=== PATIENT | male | born 1960 ===

== ENCOUNTER 2017-02-25 01:26 | Inpatient (IN) ==
[2017-02-25] MEDS ORDERED: BISACODYL 5 MG TABLET PO PRN (01:46)
[2017-02-25] MEDS ORDERED: ACETAMINOPHEN 325 MG TABLET PO PRN (01:46)
[2017-02-25] MEDS ORDERED: HYDROmorphone 2 MG/1 ML VIAL IV PRN ×3 (01:46→11:26)
[2017-02-25] MEDS ORDERED: ONDANSETRON 4 MG/2 ML VIAL IV PRN ×3 (01:46→11:26)
[2017-02-25] MEDS ORDERED: DEXTROSE 50% 25 GM/50 ML VIAL IV PRN (01:49)
[2017-02-25] MEDS ORDERED: GLUCAGON 1 MG VIAL IM PRN (01:49)
--- NOTE | 2017-02-25 01:54 | Emergency Department Note ---
Chiquita Salamanca Mantricia, am scribing for, and in the presence of, Jesse Polanco MD 01:52. Collin Salamanca Robert M, MD, personally performed the services described in this documentation, ascribed by Randee Porras in my presence, and it is both accurate and complete 153 . Arrival - Arrival Chief Complaint: Extremity Problem Stated Complaint: gangrene and cellulitis to left foot. ED Nursing Triage Note: transferred from [facility] with left 3rd toe gangrene. 3rd toe black, redness to surrounding tissues. pt states that toe began hurting/redness approx 2 months ago. denies any fever. pulses present. Mode of Arrival: Stretcher Limitations: No Limitations Source: Patient - History of Present Illness HPI Narrative: Pt is a 57 y/o male arraiving to ED by EMS as a transfer from [facility] for further evaluation of LLE problem that onset a month ago. Pt has visible gangrene to left foot. He states that a month ago, his toes on the left foot began to bleed and he did not think much of it because he was sble to stop the bleeding and control it. Pt has DM. He denies smoking and drinking. He reports no other complaints to ED. Onset (ago): month(s) Consistency: constant Allergies/Adverse Reactions: Allergies Allergy/AdvReac Type Severity Reaction Status Date / Time No Known Allergies Allergy Verified 06/10/16 10:09 Home Medications: Home Medications Medication Instructions Recorded Confirmed Type Carvedilol [Coreg] 3.125 mg PO BID 06/10/16 06/11/16 History Chlorthalidone [Hygroton] 25 mg PO DAILY 06/10/16 06/11/16 History Ferrous Sulfate [Ferrous Sulfate 325 mg PO DAILY 06/10/16 06/11/16 History Cap] Glyburide/Metformin HCl 2 each PO BID 06/10/16 06/11/16 History [Glyburide-Metformin 5-500 mg] Lisinopril [Prinivil] 5 mg PO DAILY 06/10/16 06/11/16 History Simvastatin [Zocor] 20 mg PO DAILY 06/10/16 06/11/16 History Review of System - Review of System 12 point system: reviewed and no additional remarkable complaints except as stated - Review of System Constitutional: Absent: chills, diaphoresis, fever Respiratory: Absent: cough Gastrointestinal: Absent: abdominal pain, nausea, vomiting, diarrhea Musculoskeletal: Present: other (gangrene to left foot). Absent: arm pain, back pain, leg pain, neck pain Medical,Surgical,& Family Hx - Medical History Cardio: History of: Hypertension Psychological: No history of: Anxiety Disorders Endocrine: History of: Diabetes Mellitus (NIDDM), Dyslipidemia Renal: No history of: Dialysis Genitourinary: No history of: Bladder Problem, Kidney Stones, Prostate Problems Hematology: History of: Anemia No history of: Blood Transfusion Reaction Other: No history of: Anesthesia Reactions, Cancer - Surgical History Cardiac Surgeries: Patient Denies: Cardiac Catheterization HEENT Surgeries: Patient denies: Tonsilectomy & Adenoidectomy Abdominal Surgeries: Surgical HX of: EGD Patient denies: Appendectomy, Cholecystectomy, Colonoscopy Orthopedic Surgeries: Patient denies;: Orthopedic Surgery - Social History Smoking Status: Never smoker Frequency of Alcohol Use: None Type of Drug Use: None Exam Vital Signs: Vital Signs Temperature 97.9 F 02/25/17 01:26 Pulse Rate 103 H 02/25/17 01:26 Respiratory Rate 18 02/25/17 01:26 Blood Pressure 115/74 02/25/17 01:26 O2 Sat by Pulse Oximetry 100 02/25/17 01:26 - General General appearance: alert, in no apparent distress - Head Head exam: Present: atraumatic, normocephalic, normal inspection - Eye Eye exam: Present: normal appearance, PERRL, EOMI - ENT ENT exam: Present: normal exam, normal oropharynx, mucous membranes moist, TM's normal bilaterally, normal external ear exam - Neck Neck exam: Present: normal inspection, full ROM, trachea midline. Absent: tenderness - Chest Chest inspection: Present: normal inspection, symmetric chest wall rise. Absent : tenderness - Respiratory Respiratory exam: Present: normal lung sounds bilaterally - Cardiovascular Cardiovascular exam: Present: regular rate, normal rhythm, normal heart sounds - Abdominal Exam Abdominal exam: Present: soft, normal bowel sounds. Absent: distention, tenderness, guarding, rebound - Extremities Exam Extremities exam: Present: full ROM, normal capillary refill, other (dry gangrene to left foot (2nd to 4th digits); toes are dry, chrunken, and stiff; able to wiggle 2nd and 4th digit (limited ROM to 3rd digit); discoloration to the dorsal aspect of 2nd to 4th digits of left foot). Absent: tenderness - Back Exam Back exam: Present: normal inspection, full ROM. Absent: tenderness - Neurological Exam Neurological exam: Present: alert, oriented X3, CN II-XII intact, normal gait, reflexes normal - Psychiatric Psychiatric exam: Present: normal affect, normal mood - Skin Skin exam: Present: warm, dry, intact, normal color Course - Consultations Consultation #1: The patient will be admitted to Dr. Dover. Time: 01:54 Disposition Clinical Impression: Diabetic infection of left foot, Gangrene left third toe, IDDM (insulin dependent diabetes mellitus) Case discussed with: patient, patient's family Disposition: Still a Patient Condition: Stable Time of Disposition: 01:54
[2017-02-25 02:53] LABS: Apearance,Urine Slightly Hazy (Clear); Bacteria,Urine Occasional /HPF (Few); Bilirubin,Urine Negative (Negative); Blood, Urine Small mg/dL (Negative); Glucose,Urine (UA) 50 mg/dL (Negative); Hyaline Casts,Urine 14 /LPF (0-3); Ketones,Urine Negative (Negative); Mucus,Urine Occasional /LPF (Occasional); Nitrite,Urine Negative (Negative); Protein,Urine Negative; Squamous Epithelial Cell,Urine Occasional /HPF (0-10); Urine Color Yellow (Yellow); Urine Specific Gravity 1.018 (1.001-1.035); WBC,Urine 1 /HPF (0-6)
[2017-02-25] MEDS: SODIUM CHLORIDE 0.45% 1,000 ML IV SCH (03:09)
[2017-02-25] MEDS: PIPERACILLIN/TAZOBACTAM 3,375 MG in SODIUM CHLORIDE 0.9% 100 ML IV SCH ×3 (04:29→20:11)
[2017-02-25] MEDS ORDERED: INSULIN LISPRO 100 UNIT/ML SUBCUT SCH (06:00)
--- NOTE | 2017-02-25 06:26 | EKG Report ---
Stationary ECG Study [facility] Test Date: 02/25/2017 6:02:20 AM Pat Name: ASIM CHUNG Department: Room: 333 Gender: M Grooming Assistant: PIA : [id number] Requested by: Cielo Prado Order Number: [id number] Reading MD: ENDY SUAREZ Intervals [place] Rate: 99 P: 67 DE: 193 QRS: 71 QRSD: 89 T: 65 QT: 319 QTc: 375 Interpretive Statements SINUS RHYTHM Electronically Signed On 02-25-17 06:50:14 CDT by ENDY SUAREZ [email or web address]
[2017-02-25 07:27] LABS: Basophils % 0.2 % (0.0-0.8); Eosinophils % 0.1 % (0.00-10.9); Hematocrit 25.5 VOL% (42.0-52.0); Hemoglobin 8.7 GM/DL (14.0-18.0); Immature Granulocytes % 0.7 %; Immature Granulocytes Absolute 0.11 #; Lymphocytes # 1.1 10*3/uL (1.4-4.0); Lymphocytes % 7.2 % (21.2-54.2); Mean Corpuscular HGB Conc 34.1 GM/DL (32-36); Mean Corpuscular Hemoglobin 30 PG (27-34); Mean Corpuscular Volume 88.2 FL (87-102); Mean Platelet Volume 8.9 FL (9.6-12.0); Monocytes # 0.9 10*3/uL (0.11-0.8); Monocytes % 5.9 % (1.7-12.7); Neutrophils # 13.3 10*3/uL (1.4-7.4); Neutrophils % 85.9 % (38.7-73.9); Platelet Count 302 T/CUMM (130-400); Red Blood Count 2.89 MC/CUMM (3.8-5.5); Red Cell Distribution Width 12.8 % (9.3-17.3); White Blood Count 15.5 T/CUMM (4-12)
[2017-02-25 07:59] LABS: Albumin 2.6 G/DL (3.4-5.0); Bilirubin,Total 0.8 MG/DL (0.2-1.0); Calcium 8.1 MG/DL (8.5-10.1); Potassium 4.5 MMOL/L (3.5-5.1); Total Protein 6.2 G/DL (6.4-8.3)
--- NOTE | 2017-02-25 09:02 | General Surg History&Physical ---
Assessment and Plan - Time spent with patient Time spent with patient: Greater than 30 minutes (1) Gangrene of toe of left foot Status: Acute Assessment and plan: 02/25/2017. Ischemic gangrene left third toe with abscess and skin loss of the dorsal left foot. This is likely related to diabetic foot infection, with unknown degree of underlying peripheral vascular disease. His glucoses and WBC are elevated at this point as well, and he needs surgical excision of the toe and drainage of the infection. We will plan to take him to surgery this morning. He understands that we are to amputate the left third toe, and it is questionable whether we can save this left second and fourth toes. He also understands that we will be left with a large defect dorsal scan on the left foot, and this will require an extensive period of time of healing before we can hope to graft or close the area but in effort to salvage the forefoot this will be our initial plan. He understands and is in agreement with conservative treatment at this point in favor of this plan over transmetatarsal amputation. Current Visit: Yes (2) Diabetic infection of left foot Status: Acute Current Visit: Yes History of Present Illness Chief complaint: Ischemic left third toe with infection left foot History of present illness: Mr. Alvarez is a 57 year old male Home Medications Medication Instructions Recorded Confirmed Type Carvedilol [Coreg] 3.125 mg PO BID 06/10/16 06/11/16 History Chlorthalidone [Hygroton] 25 mg PO DAILY 06/10/16 06/11/16 History Ferrous Sulfate [Ferrous Sulfate 325 mg PO DAILY 06/10/16 06/11/16 History Cap] Glyburide/Metformin HCl 2 each PO BID 06/10/16 06/11/16 History [Glyburide-Metformin 5-500 mg] Lisinopril [Prinivil] 5 mg PO DAILY 06/10/16 06/11/16 History Simvastatin [Zocor] 20 mg PO DAILY 06/10/16 06/11/16 History Allergies Allergy/AdvReac Type Severity Reaction Status Date / Time No Known Allergies Allergy Verified 06/10/16 10:09 Medical,Surgical,& Family Hx - Medical History Cardio: History of: Hypertension Psychological: No history of: Anxiety Disorders Endocrine: History of: Diabetes Mellitus (NIDDM), Dyslipidemia Renal: No history of: Dialysis Genitourinary: No history of: Bladder Problem, Kidney Stones, Prostate Problems Hematology: History of: Anemia No history of: Blood Transfusion Reaction Other: No history of: Anesthesia Reactions, Cancer - Surgical History Cardiac Surgeries: Patient Denies: Cardiac Catheterization HEENT Surgeries: Patient denies: Tonsilectomy & Adenoidectomy Abdominal Surgeries: Surgical HX of: EGD Patient denies: Appendectomy, Cholecystectomy, Colonoscopy Orthopedic Surgeries: Patient denies;: Orthopedic Surgery - Family History Family History: Reports;: Family Diabetes (two brothers) - Social History Smoking Status: Never smoker (Patient admits to using smokeless tobacco frequently) Frequency of Alcohol Use: None Type of Drug Use: None Exam - Constitutional Vitals: Period Temp Pulse Resp BP Sys/Chand Pulse Ox Last 24 Hr 97.9 F-99.4 F 92-103 16-20 103-126/66-78 99-100 General appearance: normal weight, no acute distress - Head Head exam: Present: normal inspection - Eye Eye exam: Present: EOMI Pupils: Present: EILEEN - ENT Mouth exam: Present: normal voice, dry mucosa - Respiratory Respiratory exam: Absent: rales, wheezes - Cardiovascular Cardiovascular exam: Present: RRR - GI/Abdominal GI/Abdominal exam: Present: hypoactive bowel sounds, soft. Absent: distended, tenderness - Extremities Exam Extremities exam: Present: other (Left lower extremity is warm to touch. Distal ischemic changes left foot to include blistering and ischemic skin midportion of the dorsal foot. This is well demarcated, with ischemic and dry gangrene of the left third toe. There are ischemic skin changes of the left second and fourth toes. It is hyperemic and erythema over the left foot to approximately the level of the tarsal bones. There is no fluctuance past the midfoot area. On the plantar surface he is tender and there is mild erythema but no fluctuance. I cannot palpate pulses with certainty or consistency, but intermittently do feel that there are pulses present and the DP site on the left at 1+. On the right there are palpable 1-2+ pulses in the DP and PT sites. He has markedly visible varicosities present bilaterally without swelling, erythema, or venous stasis changes.). Absent: edema Quality Measures - VTE Contraindication to Pharmacological VTE Prophylaxis: High Risk of Bleeding Results - Labs CBC & BMP: 02/25/17 07:16 02/25/17 07:16 Lab Results: I have reviewed the past 24 hour labs - Diagnostic Findings Procedure: CT: report reviewed by me (Outside CT from [place] was reviewed. There is no evidence of osteo-, however there is air and soft tissue noted with ischemic gangrene of the left third toe.)
[2017-02-25] MEDS: PANTOPRAZOLE 40 MG TABLET PO SCH (09:36)
[2017-02-25] MEDS ORDERED: ROPIVACAINE 0.5% 30 ML VIAL ONE (09:59)
[2017-02-25] MEDS ORDERED: LIDOCAINE 2% 5 ML VIAL ONE (10:11)
[2017-02-25] MEDS ORDERED: PROPOFOL 200 MG/20 ML VIAL IV ONE (10:11)
--- NOTE | 2017-02-25 11:13 | Operative Note ---
Date of procedure: 02/25/17 Pre-op diagnosis: Ischemic left third toe with ischemic changes dorsum of the left foot Post-op diagnosis: other (Ischemic changes of the second third and fourth toes with extensive ischemic changes on the dorsum of the left foot) Procedure: Operative note: Preoperative diagnosis: Ischemic changes of the left third toe with ischemic changes on the dorsum of the foot Postoperative diagnosis: Ischemic changes of the second third and fourth toes with ischemic changes dorsum of the left foot Procedure: Amputation of the second third and fourth toe transmetatarsal with extensive debridement of skin subcutaneous tissue tendon and muscle Surgeon Dr. Dover Forensic Manager Cielo Prado, [employer] ACNP Anesthesia was regional block with local and managed anesthetic care Brief history: 57-year-old diabetic male who arrived emergency room because of increasing odor and discoloration of the third toe of the left foot changes in the dorsum of his foot. He was admitted put on IV antibiotics and would like to bring the surgery at this time to try to get this thing debrided and cleaned up. Because extensiveness of the ischemic changes on the dorsum of the foot were concerned that we may have to also take the second and fourth toes along with the third. Procedure: With patient in the supine position prepped and draped in sterile fashion timeout and antibiotics completed we approach this area the wound itself the large necrotic area on the dorsum of the foot at the base of the second third and fourth toes with a mummified third toe at this time. At this point I made an incision around the base of the third toe care unit dorsum onto the necrotic tissue at which time I was able to disarticulate that toe completely off. We had a large amount of necrotic tissue still that would begin to debride to try to clear the necrotic tissue debriding some tendon muscle and the subcutaneous tissue and skin. As we continue to work it was clear that the third toe was not the only toe of concern but the fourth toe looked completely gone at this time. He was bluish and discolored and this process was extending up onto the toe itself. At that point went across the base of the fourth toe and disarticulated at the joint excising the tendon subtenons tissue. We taken tissue for culture and sensitivity during this time. With that removed and then begin to debride some of that necrotic tissue off the dorsum of the foot that extended over to the fifth toe but we tried to get where it looked normal but we still had some clotted veins present in that area. We debrided good bit at subcutaneous tissue to get beyond the thrombosed vessels at this point. At this time as we begin to look at the second toe we opened up some loose skin and find that it was ischemic to so at this point I went ahead and went around the base of the second toe and disarticulated it with the knife and then debrided the tendon and subcutaneous tissue from the skin edge and removing all thrombosed vessels that we can see at this point. That looks clear at this point with some bleeding on the lateral edge at this time. At this point I finished debriding the dorsum of the foot that we took an oscillating saw and we did took the saw and removed the metatarsal heads of the second third and fourth metatarsals. Once we had completed that we debrided additional tenderness and muscle and subcutaneous tissue in the base to get a clean little area especially between the metatarsals. Before we finished we found an ulcer in the base of the fifth toe we debrided that with the knife just to get to good clean base and removed some loose skin. This toe may be involved we might lose it to. When we finished we washed irrigated with saline solution. We have a total wound now that is 10.4 x 7.1 x 2.4 cm in size. This is a Eastman's grade 4 wound. Estimated blood loss 15 cc Sponge count correct 2 Drains none Complications none Condition stable satisfactory Anesthesia: regional, local (0.25% Marcaine plain mixed [id number] 1% Xylocaine plain) Surgeon / Physician: Jesse Dover Forensic Manager: Cielo Prado Estimated blood loss: other (10 cc) Specimens: other (Tissue for cultures bone for cultures and tissue for pathology ) Condition: stable Disposition: floor Results - Labs CBC & BMP: 02/25/17 07:16 02/25/17 07:16 Discharge Plan - Discharge Medications No Action Simvastatin [Zocor] 20 mg PO BEDTIME Lisinopril [Prinivil] 5 mg PO DAILY Glyburide/Metformin HCl [Glyburide-Metformin 5-500 mg] 2 each PO BID Ferrous Sulfate [Ferrous Sulfate Cap] 325 mg PO DAILY Chlorthalidone [Hygroton] 25 mg PO DAILY Carvedilol [Coreg] 3.125 mg PO DAILY - Follow Up or Referral - Forms/Instructions
[2017-02-25] MEDS ORDERED: SKIN HEALING OINT (AQUAPHOR) 50 GM TUBE TOP PRN (11:26)
[2017-02-25] MEDS ORDERED: fentaNYL 100 MCG/2 ML VIAL ONE (11:26)
[2017-02-25] MEDS ORDERED: MIDAZOLAM 2 MG/2 ML VIAL ONE (11:26)
[2017-02-25] MEDS ORDERED: CHLORHEXIDINE 4% SOLN 118 ML BOTTLE TOP ONE (11:26)
[2017-02-25] MEDS ORDERED: LACTATED RINGERS 1,000 ML IV SCH (11:30)
[2017-02-25] MEDS: KETOROLAC 15 MG/1 ML VIAL IV SCH ×3 (12:57→23:06)
[2017-02-25] MEDS: INSULIN REGULAR 100 UNIT/ML SUBCUT SCH ×3 (13:01→20:12)
[2017-02-25] MEDS: SIMVASTATIN 20 MG TABLET PO SCH (20:14)
[2017-02-25] MEDS: ENOXAPARIN 40 MG/0.4 ML SYRINGE SUBCUT SCH (20:14)
[2017-02-26] MEDS: PIPERACILLIN/TAZOBACTAM 3,375 MG in SODIUM CHLORIDE 0.9% 100 ML IV SCH ×3 (03:16→21:35)
[2017-02-26] MEDS: SODIUM CHLORIDE 0.45% 1,000 ML IV SCH ×6 (03:17→21:35)
[2017-02-26] MEDS: KETOROLAC 15 MG/1 ML VIAL IV SCH ×4 (05:29→22:51)
[2017-02-26 06:14] LABS: Basophils % 0.2 % (0.0-0.8); Eosinophils # 0.2 10*3/uL (0.0-0.87); Eosinophils % 1.3 % (0.00-10.9); Hemoglobin 8.2 GM/DL (14.0-18.0); Immature Granulocytes % 0.5 %; Immature Granulocytes Absolute 0.06 #; Lymphocytes # 1.4 10*3/uL (1.4-4.0); Lymphocytes % 11.1 % (21.2-54.2); Mean Corpuscular HGB Conc 32.8 GM/DL (32-36); Mean Corpuscular Hemoglobin 30 PG (27-34); Mean Corpuscular Volume 90.6 FL (87-102); Mean Platelet Volume 9.5 FL (9.6-12.0); Monocytes # 0.7 10*3/uL (0.11-0.8); Monocytes % 5.3 % (1.7-12.7); Neutrophils # 10.4 10*3/uL (1.4-7.4); Neutrophils % 81.6 % (38.7-73.9); Platelet Count 277 T/CUMM (130-400); Red Blood Count 2.76 MC/CUMM (3.8-5.5); Red Cell Distribution Width 13.1 % (9.3-17.3); White Blood Count 12.7 T/CUMM (4-12)
[2017-02-26 06:45] LABS: Albumin 2.4 G/DL (3.4-5.0); Bilirubin,Total 0.6 MG/DL (0.2-1.0); Calcium 7.9 MG/DL (8.5-10.1); Osmolality,Calculated 288.1 MOS/KG (273-304); Potassium 4.5 MMOL/L (3.5-5.1); Total Protein 5.5 G/DL (6.4-8.3)
[2017-02-26] MEDS: INSULIN REGULAR 100 UNIT/ML SUBCUT SCH ×4 (09:12→21:30)
[2017-02-26] MEDS: FERROUS SULFATE 325 MG TABLET PO SCH (09:12)
[2017-02-26] MEDS: CARVEDILOL 3.125 MG TABLET PO SCH (09:12)
[2017-02-26] MEDS: LISINOPRIL 5 MG TABLET PO SCH (09:12)
[2017-02-26] MEDS: CHLORTHALIDONE 25 MG TABLET PO SCH (09:13)
[2017-02-26] MEDS: PANTOPRAZOLE 40 MG TABLET PO SCH (09:13)
--- NOTE | 2017-02-26 09:46 | General Surgery Progress Note ---
Assessment and Plan (1) Gangrene of toe of left foot Status: Acute Assessment and plan: 02/25/2017. Ischemic gangrene left third toe with abscess and skin loss of the dorsal left foot. This is likely related to diabetic foot infection, with unknown degree of underlying peripheral vascular disease. His glucoses and WBC are elevated at this point as well, and he needs surgical excision of the toe and drainage of the infection. We will plan to take him to surgery this morning. He understands that we are to amputate the left third toe, and it is questionable whether we can save this left second and fourth toes. He also understands that we will be left with a large defect dorsal scan on the left foot, and this will require an extensive period of time of healing before we can hope to graft or close the area but in effort to salvage the forefoot this will be our initial plan. He understands and is in agreement with conservative treatment at this point in favor of this plan over transmetatarsal amputation. 02/26/2017. Patient is stable postop I&D excisional debridement of left foot and amputation of second through fourth toes. Will initiate wound care today, keeping the areas moist while we await final cultures. Metabolically looks good and will follow his labs. When final cultures are available we will work on a disposition for wound care while we increased granulation in hopes of ultimately grafting this wound. Will be optimistically cautious as we await the status of the fifth toe, but he understands that we may ultimately lose the fifth toe as well Current Visit: Yes (2) Diabetic infection of left foot Status: Acute Current Visit: Yes Subjective Patient reports: Present: pain is less, tolerating a regular diet Exam - Constitutional Vitals: Period Temp Pulse Resp BP Sys/Chand Pulse Ox Last 24 Hr 97.8 F-99.0 F 51-77 14-20 90-130/41-75 98-100 General appearance: no acute distress - Respiratory Respiratory exam: Present: clear to auscultation bilaterally - Cardiovascular Cardiovascular exam: Present: RRR - Extremities Exam Extremities exam: Present: other (Patient is status post amputation of the left second through fourth toes with debridement of dorsal left foot. Erythema is clearing. There is no advancing ischemic change. I see no gross purulence. There is mild oozing from the proximal margin of the foot. He is appropriately tender. The only questionable area of vascularization is the fifth toe, which is a bit dusky.) Results - Labs CBC & BMP: 02/26/17 05:04 02/26/17 05:04 Lab Results: I have reviewed the past 24 hour labs (Postop labs are stable.) Quality Measures - VTE Contraindication to Pharmacological VTE Prophylaxis: High Risk of Bleeding
[2017-02-26] MEDS: SODIUM HYPOCHLORITE 0.25% IRRIG 473 ML BOTTLE TOP SCH (16:41)
[2017-02-26] MEDS: ENOXAPARIN 40 MG/0.4 ML SYRINGE SUBCUT SCH (21:32)
[2017-02-26] MEDS: SIMVASTATIN 20 MG TABLET PO SCH (21:32)
--- NOTE | 2017-02-27 03:31 | Pathology Report from [facility] ---
[facility] [place] : [id number] PATIENT NAME : Pepe Alvarez ORDERING DR : MICHELLE CEJA MD CLINICAL HX: DM - Gangrene left foot POST-OP DX: Same SPECIMEN INFO: 3rd, 4th, 5th toes left foot GROSS DESCRIPTION: The specimen is received in formalin labeled with the patients name PEPE ALVAREZ and 3RD, 4TH & 5TH TOES and consists of three focally gangrenous toes along with fragments of bone and soft tissue measuring 9.0 x 5.5 cm in aggregate. A delivery representative section submitted in one cassette. DIAGNOSIS FOR PEPE ALVAREZ: LEFT 3RD, 4TH AND 5TH TOES, AMPUTATIONS: Gangrene. COLLECTED DATE: 02/25/2017 [facility] [place] DATE: 02/26/2017 ELECTRONICALLY SIGNED BY: William Todd M.D. 02/26/2017 - 9:11:26 [facility]ITAL[facility]oh[facility]
[2017-02-27] MEDS: SODIUM CHLORIDE 0.45% 1,000 ML IV SCH ×3 (05:09→17:51)
[2017-02-27] MEDS: PIPERACILLIN/TAZOBACTAM 3,375 MG in SODIUM CHLORIDE 0.9% 100 ML IV SCH ×3 (05:10→20:19)
[2017-02-27] MEDS: KETOROLAC 15 MG/1 ML VIAL IV SCH ×3 (05:10→16:40)
[2017-02-27] MEDS: CARVEDILOL 3.125 MG TABLET PO SCH (08:24)
[2017-02-27] MEDS: LISINOPRIL 5 MG TABLET PO SCH (08:24)
[2017-02-27] MEDS: INSULIN REGULAR 100 UNIT/ML SUBCUT SCH ×4 (08:25→20:20)
[2017-02-27] MEDS: FERROUS SULFATE 325 MG TABLET PO SCH (08:25)
[2017-02-27] MEDS: PANTOPRAZOLE 40 MG TABLET PO SCH (08:25)
[2017-02-27] MEDS: CHLORTHALIDONE 25 MG TABLET PO SCH (08:25)
[2017-02-27] MEDS: SODIUM HYPOCHLORITE 0.25% IRRIG 473 ML BOTTLE TOP SCH (09:44)
--- NOTE | 2017-02-27 09:50 | General Surgery Progress Note ---
Assessment and Plan - Time spent with patient Time spent with patient: Less than 30 minutes (1) Gangrene of toe of left foot Status: Acute Assessment and plan: 02/25/2017. Ischemic gangrene left third toe with abscess and skin loss of the dorsal left foot. This is likely related to diabetic foot infection, with unknown degree of underlying peripheral vascular disease. His glucoses and WBC are elevated at this point as well, and he needs surgical excision of the toe and drainage of the infection. We will plan to take him to surgery this morning. He understands that we are to amputate the left third toe, and it is questionable whether we can save this left second and fourth toes. He also understands that we will be left with a large defect dorsal scan on the left foot, and this will require an extensive period of time of healing before we can hope to graft or close the area but in effort to salvage the forefoot this will be our initial plan. He understands and is in agreement with conservative treatment at this point in favor of this plan over transmetatarsal amputation. 02/26/2017. Patient is stable postop I&D excisional debridement of left foot and amputation of second through fourth toes. Will initiate wound care today, keeping the areas moist while we await final cultures. Metabolically looks good and will follow his labs. When final cultures are available we will work on a disposition for wound care while we increased granulation in hopes of ultimately grafting this wound. Will be optimistically cautious as we await the status of the fifth toe, but he understands that we may ultimately lose the fifth toe as well 02/27/2017. Progressing well post amputation of left second third and fourth toes for ischemic gangrene. His hematocrit is stable at 25; we will watch this a little bit longer before transfusing. His arterial Doppler waveform does seem to indicate an abnormal inflow pattern. His creatinine is 1.2 so will plan to get a CTA today to assess his arterial status. Final cultures are still pending; he is growing gram-negative rods on preliminary cultures, and is currently receiving Zosyn IV. We will continue this and his local care until final cultures are available. Current Visit: Yes (2) Diabetic infection of left foot Status: Acute Current Visit: Yes Subjective Patient reports: Present: feels better, pain is less, tolerating a regular diet Exam - Constitutional Vitals: Period Temp Pulse Resp BP Sys/Chand Pulse Ox Last 24 Hr 97.6 F-98.4 F 61-78 16-20 122-146/64-74 98-100 General appearance: no acute distress - Respiratory Respiratory exam: Present: clear to auscultation bilaterally - Cardiovascular Cardiovascular exam: Present: RRR - GI/Abdominal GI/Abdominal exam: Present: soft. Absent: tenderness - Extremities Exam Extremities exam: Present: other (Left lower extremity postop wound is clean without bleeding or progressive ischemic changes. There is no erythema. Left fifth toe vascularity is still questionable.) Results - Labs CBC & BMP: 02/26/17 05:04 02/26/17 05:04 Lab Results: I have reviewed the past 24 hour labs (Hematocrit is stable at 25. His white count is now normal at 12.7. Arterial Doppler waveform is noted; see Dr. Dover formal interpretation. I discussed this with him, note that the waveform pattern is markedly abnormal, even though the ABIs are not unusually low.) Quality Measures - VTE Contraindication to Pharmacological VTE Prophylaxis: High Risk of Bleeding
--- NOTE | 2017-02-27 11:49 | CT Report ---
CT angio abdomen/femoral Indication: Abnormal arterial Doppler study. Claudication. Comparison: None. Technique: Following administration of intravenous contrast, multiple contiguous axial images were obtained from the mid to lower chest through the feet. Additionally, 3-D Volumetric reconstructions of the aorta and bilateral lower extremity arterial structures were performed. Coronal and sagittal MPR series were initially submitted. The CT examination was performed using one or more of the following dose reduction techniques: Automatic exposure control, adjustment of the mA and kV according to patient size, use of acute or iterative reconstruction techniques. Findings: Vascular findings: Lower thoracic aorta demonstrates no significant abnormality. The suprarenal abdominal aorta, celiac axis, superior mesenteric artery, and bilateral renal arteries demonstrate no significant abnormality. The infrarenal abdominal aorta demonstrates no significant abnormality. Notice made that the inferior mesenteric artery demonstrates circumferential intimal calcification with suggested mild stenosis of the vessel lumen involving a short segment of the vessel after the vessel origin. The bilateral common iliac arteries demonstrate no disease. The bilateral internal iliac arteries demonstrate diffuse mild to moderate intimal calcification after the first division. The bilateral external iliac arteries and common femoral arteries demonstrate no significant disease. The right deep femoral artery demonstrates diffuse intimal calcification circumferentially present and some of the intramuscular branches makes the lumen difficult to visualize. No distinct occlusion is present. The right superficial femoral artery demonstrates circumferential intimal calcification throughout the vessel without evidence of significant stenosis. The right popliteal artery demonstrates diffuse circumferential intimal calcification resulting in no significant stenosis. Below the level of the right knee, the right tibioperoneal trunk and right anterior tibial artery origin demonstrate diffuse circumferential calcification. Calcification additionally is noted within the posterior tibial artery. There appears to be three-vessel runoff to the right ankle although the lumens of the anterior and posterior tibial arteries at the level of the ankle somewhat difficult to visualize secondary to the amount of calcification present. The left deep femoral artery demonstrates circumferential intimal calcification without distinct evidence of severe stenosis. The left superficial femoral artery demonstrates circumferential intimal calcification resulting in no significant stenosis. Left popliteal artery has no significant stenosis and additionally demonstrates circumferential intimal calcification. Below the level of the left knee, the tibioperoneal trunk, anterior tibial artery, posterior tibial artery, and peroneal artery demonstrates intimal calcification with no definite significant stenosis. Three-vessel runoff to the left ankle is suggested however the peroneal artery within the lower calf, the posterior tibial artery within the lower calf and ankle, and the anterior tibial artery at the level of the ankle is somewhat difficult to evaluate secondary to small lumen size and amount of intimal calcification present. Nonvascular findings: Otherwise, the imaged structures of the lower chest, liver, spleen, pancreas, adrenal glands, kidneys, stomach, bowel, and intrapelvic contents as well as bony structures soft tissues and musculature the body wall demonstrate no evidence of significant pathology. Musculature the lower extremities bilaterally symmetric with no atrophy suggested. Osseous structures demonstrate no acute findings. Impression: 1. There is diffuse circumferential intimal calcification involving each of the superficial femoral arteries, popliteal arteries, and origins of the anterior, posterior tibial arteries as well as peroneal arteries and tibioperoneal trunks. There is no evidence of significant stenosis involving these vessels through the mid calf. Below the mid calf, the amount of calcification makes the lumen of the vessels difficult to visualize. There is suggested three-vessel runoff to the right ankle. Probable 3 vessel runoff to the left ankle is present. Conventional angiogram would be required for further characterization of the lumens below the level of the mid calf bilaterally. 02/27/2017 11:38 AM PROCEDURE INTERPRETED AT [facility] DEPARTMENT OF RADIOLOGY Final Report Signed by: Dr. Miguel Polanco
[2017-02-27] MEDS: SIMVASTATIN 20 MG TABLET PO SCH (20:20)
[2017-02-27] MEDS: ENOXAPARIN 40 MG/0.4 ML SYRINGE SUBCUT SCH (20:20)
[2017-02-28] MEDS: KETOROLAC 15 MG/1 ML VIAL IV SCH ×2 (00:07→04:55)
[2017-02-28] MEDS: SODIUM CHLORIDE 0.45% 1,000 ML IV SCH ×2 (01:29→11:41)
[2017-02-28] MEDS: PIPERACILLIN/TAZOBACTAM 3,375 MG in SODIUM CHLORIDE 0.9% 100 ML IV SCH ×3 (04:55→21:10)
[2017-02-28] MEDS: INSULIN REGULAR 100 UNIT/ML SUBCUT SCH ×4 (08:37→21:05)
[2017-02-28] MEDS: CARVEDILOL 3.125 MG TABLET PO SCH (08:58)
[2017-02-28] MEDS: FERROUS SULFATE 325 MG TABLET PO SCH (08:58)
[2017-02-28] MEDS: PANTOPRAZOLE 40 MG TABLET PO SCH (08:58)
[2017-02-28] MEDS: LISINOPRIL 5 MG TABLET PO SCH (08:58)
[2017-02-28] MEDS: CHLORTHALIDONE 25 MG TABLET PO SCH (08:58)
[2017-02-28] MEDS: SODIUM HYPOCHLORITE 0.25% IRRIG 473 ML BOTTLE TOP SCH (08:59)
--- NOTE | 2017-02-28 10:08 | General Surgery Progress Note ---
Assessment and Plan - Time spent with patient Time spent with patient: Less than 30 minutes (1) Gangrene of toe of left foot Status: Acute Assessment and plan: 02/25/2017. Ischemic gangrene left third toe with abscess and skin loss of the dorsal left foot. This is likely related to diabetic foot infection, with unknown degree of underlying peripheral vascular disease. His glucoses and WBC are elevated at this point as well, and he needs surgical excision of the toe and drainage of the infection. We will plan to take him to surgery this morning. He understands that we are to amputate the left third toe, and it is questionable whether we can save this left second and fourth toes. He also understands that we will be left with a large defect dorsal scan on the left foot, and this will require an extensive period of time of healing before we can hope to graft or close the area but in effort to salvage the forefoot this will be our initial plan. He understands and is in agreement with conservative treatment at this point in favor of this plan over transmetatarsal amputation. 02/26/2017. Patient is stable postop I&D excisional debridement of left foot and amputation of second through fourth toes. Will initiate wound care today, keeping the areas moist while we await final cultures. Metabolically looks good and will follow his labs. When final cultures are available we will work on a disposition for wound care while we increased granulation in hopes of ultimately grafting this wound. Will be optimistically cautious as we await the status of the fifth toe, but he understands that we may ultimately lose the fifth toe as well 02/27/2017. Progressing well post amputation of left second third and fourth toes for ischemic gangrene. His hematocrit is stable at 25; we will watch this a little bit longer before transfusing. His arterial Doppler waveform does seem to indicate an abnormal inflow pattern. His creatinine is 1.2 so will plan to get a CTA today to assess his arterial status. Final cultures are still pending; he is growing gram-negative rods on preliminary cultures, and is currently receiving Zosyn IV. We will continue this and his local care until final cultures are available. 02/28/2017. Progressive ischemic changes of the left foot with gangrenous tissue now noted for left fifth toe. This does need to be debrided and likely will lose the fifth toe. I discussed this with the patient, as well as the possibility that he may need further studies to determine this circulation status lower extremities. I believe we would benefit from going ahead and obtaining an opinion from Dr. Carcamo, and consulted him for Thursday. We may also be able to take him to surgery on Thursday and go ahead and debride this area but will have Dr. Dover look in and reevaluate on Thursday. Will repeat labs on Thursday and hold him n.p.o. in case we can do the surgery on Thursday. Current Visit: Yes (2) Diabetic infection of left foot Status: Acute Current Visit: Yes Subjective Patient reports: Present: no new complaints, tolerating a regular diet Exam - Constitutional Vitals: Period Temp Pulse Resp BP Sys/Chand Pulse Ox Last 24 Hr 97.3 F-98.4 F 63-80 16-20 117-150/53-80 95-100 General appearance: no acute distress - Respiratory Respiratory exam: Present: clear to auscultation bilaterally - Cardiovascular Cardiovascular exam: Present: RRR - GI/Abdominal GI/Abdominal exam: Present: soft - Extremities Exam Extremities exam: Present: other (Left lower extremity without edema. The left dorsal foot wound is moist and pale. There is no active bleeding noted. There is no advancing erythema. The lateral edge of the wound does show some duskiness, and approximately 1 cm skin loss at the proximal margin. Unfortunately the left fifth toe does appear ischemic, and I do not see any salvageable tissue of the toe itself. The lateral skin of the foot however does perfuse is sensate. The left great toe is well perfused and has no ischemic signs. There is no edema bilaterally and no calf tenderness.) Results - Labs CBC & BMP: 02/26/17 05:04 02/26/17 05:04 Lab Results: I have reviewed the past 24 hour labs - Diagnostic Findings Procedure: CT Abdomen and Pelvis: image reviewed by me, report reviewed by me ( CTA is noted to have circumferential calcifications of the femoral arteries bilaterally with no specific point of stenosis. There does appear to be three- vessel runoff to the Calves but I am not clear as to what point this is reconstituted at the feet, however, and there is some question as to the need for a formal arteriogram.) Quality Measures - VTE Contraindication to Pharmacological VTE Prophylaxis: High Risk of Bleeding
--- NOTE | 2017-02-28 10:47 | Event Note ---
I have seen and examined this patient and agree with the note by ATA Reed done today. The patient is status post amputation of left second third and fourth toes transmetatarsal on 02/25/2017. The fifth toe has some necrotic changes but this is being watched currently. We will continue current management and wound care.
[2017-02-28] MEDS: ENOXAPARIN 40 MG/0.4 ML SYRINGE SUBCUT SCH (21:05)
[2017-02-28] MEDS: SIMVASTATIN 20 MG TABLET PO SCH (21:05)
[2017-03-01] MEDS: PIPERACILLIN/TAZOBACTAM 3,375 MG in SODIUM CHLORIDE 0.9% 100 ML IV SCH ×3 (04:34→20:24)
[2017-03-01 05:43] LABS: Basophils % 0.2 % (0.0-0.8); Eosinophils # 0.1 10*3/uL (0.0-0.87); Eosinophils % 1.3 % (0.00-10.9); Hemoglobin 8.4 GM/DL (14.0-18.0); Immature Granulocytes % 0.7 %; Immature Granulocytes Absolute 0.08 #; Lymphocytes # 1.8 10*3/uL (1.4-4.0); Lymphocytes % 16.4 % (21.2-54.2); Mean Corpuscular HGB Conc 33.6 GM/DL (32-36); Mean Corpuscular Hemoglobin 30 PG (27-34); Mean Corpuscular Volume 89.3 FL (87-102); Mean Platelet Volume 9.1 FL (9.6-12.0); Monocytes # 0.7 10*3/uL (0.11-0.8); Monocytes % 6.1 % (1.7-12.7); Neutrophils # 8.3 10*3/uL (1.4-7.4); Neutrophils % 75.3 % (38.7-73.9); Platelet Count 326 T/CUMM (130-400); Red Cell Distribution Width 12.8 % (9.3-17.3)
[2017-03-01 06:16] LABS: Albumin 2.3 G/DL (3.4-5.0); Bilirubin,Total 0.4 MG/DL (0.2-1.0); Calcium 7.8 MG/DL (8.5-10.1); Total Protein 5.6 G/DL (6.4-8.3)
[2017-03-01 06:17] LABS: Osmolality,Calculated 281.3 MOS/KG (273-304); Potassium 4.3 MMOL/L (3.5-5.1)
[2017-03-01] MEDS: LISINOPRIL 5 MG TABLET PO SCH (08:38)
[2017-03-01] MEDS: FERROUS SULFATE 325 MG TABLET PO SCH (08:38)
[2017-03-01] MEDS: PANTOPRAZOLE 40 MG TABLET PO SCH (08:38)
[2017-03-01] MEDS: INSULIN REGULAR 100 UNIT/ML SUBCUT SCH ×4 (08:38→20:25)
[2017-03-01] MEDS: CARVEDILOL 3.125 MG TABLET PO SCH (08:38)
[2017-03-01] MEDS: CHLORTHALIDONE 25 MG TABLET PO SCH (08:38)
[2017-03-01] MEDS: SODIUM HYPOCHLORITE 0.25% IRRIG 473 ML BOTTLE TOP SCH (08:40)
--- NOTE | 2017-03-01 08:53 | Event Note ---
General Surgery Progress Note Chief complaint This patient is a 57-year-old man who was admitted and treated with amputation of left second third and fourth toes for gangrene on 02/25/[address] Dover Interval history The patient had no events overnight. He has no complaints today. Physical exam The patient is afebrile with normal vital signs The left foot wound shows necrosis of the left fifth toe There is some soupy tissue present at the amputation sites. Labs None Imaging None Assessment and plan The patient likely needs more surgery but he also is undergoing vascular workup. We will continue local wound care and antibiotics
[2017-03-01] MEDS: SIMVASTATIN 20 MG TABLET PO SCH (20:24)
[2017-03-01] MEDS: ENOXAPARIN 40 MG/0.4 ML SYRINGE SUBCUT SCH (20:25)
[2017-03-02] MEDS: PIPERACILLIN/TAZOBACTAM 3,375 MG in SODIUM CHLORIDE 0.9% 100 ML IV SCH ×3 (04:41→23:33)
[2017-03-02] MEDS: CARVEDILOL 3.125 MG TABLET PO SCH (08:36)
[2017-03-02] MEDS: PANTOPRAZOLE 40 MG TABLET PO SCH (08:36)
[2017-03-02] MEDS: INSULIN REGULAR 100 UNIT/ML SUBCUT SCH ×4 (08:36→21:31)
[2017-03-02] MEDS: LISINOPRIL 5 MG TABLET PO SCH (08:36)
[2017-03-02] MEDS ORDERED: ceFAZolin 2,000 MG in PREMIX 1 EACH IV ONE (08:49)
[2017-03-02] MEDS: FERROUS SULFATE 325 MG TABLET PO SCH (08:49)
--- NOTE | 2017-03-02 08:54 | General Surgery Progress Note ---
Assessment and Plan - Time spent with patient Time spent with patient: Less than 30 minutes (1) Diabetic infection of left foot Status: Acute Assessment and plan: 03/02/2017. The wound of the dorsum of the left foot does not look good with a good bit of sloughing material still present at this time. The fifth toe has become ischemic as we expected it would as we have had failing of the skin flaps progression on the lateral aspect of the foot at this time. The left great toe continues to be okay with a little bit of skin change right at the edge of the wound near it. At this point we need further debridement to clean up this wound to see if we can get beyond this point. We will plan to taken to surgery today for debridement. CTA has failed to really show us any good possibility for any type of reconstructive process that would improve circulation at this time. HBO may help the healing process although this is going be a tough one to get a base down that we could eventually get skin over. He will most certainly require skin graft at some point. Current Visit: Yes Subjective Patient reports: Present: no new complaints, afebrile Exam - Constitutional Vitals: Period Temp Pulse Resp BP Sys/Chand Pulse Ox Last 24 Hr 98.1 F-98.8 F 62-84 15-18 110-140/62-73 97-100 General appearance: mild distress - Head Head exam: Present: normal inspection - ENT ENT exam: Present: normal exam - Neck Neck exam: Present: normal inspection - Respiratory Respiratory exam: Present: clear to auscultation bilaterally - Cardiovascular Cardiovascular exam: Present: RRR - GI/Abdominal GI/Abdominal exam: Present: normal bowel sounds, soft - Extremities Exam Extremities exam: Present: other (Open wound of the left foot with failed skin flaps of the lateral aspect of the wound and progression of ischemic changes of the left fifth toe. Sloughy material in the center of the wound with some mild skin loss on the medial part of the skin edge at this time.) - Back Exam Back exam: Present: normal inspection - Neurological Exam Neurological exam: Present: alert, oriented X3, CN II-XII intact - Skin Skin exam: Present: normal color, warm, dry Results - Labs CBC & BMP: 03/01/17 05:13 03/01/17 05:13 Lab Results: I have reviewed the past 24 hour labs Quality Measures - VTE Contraindication to Pharmacological VTE Prophylaxis: High Risk of Bleeding
[2017-03-02] MEDS: CHLORTHALIDONE 25 MG TABLET PO SCH (09:11)
[2017-03-02] MEDS ORDERED: ROPIVACAINE 0.5% 30 ML VIAL ONE (10:54)
--- NOTE | 2017-03-02 11:07 | Vascular Surgery Consult Note ---
History of Present Illness Chief complaint: diabetic gangrene left foot History of present illness: Mr. Alvarez is a 57 year old male Mr. Alvarez is admitted with diabetic gangrene involving his left foot he is undergone amputation second third and fourth toes and debridement on the dorsum of the foot and will require further debridement and amputation of the fifth toe today. Lower arterial Dopplers show some generalized decreased pulse volume waveforms but very high pressures which is consistent with atherosclerotic and calcified vessels. CT angiogram that I have reviewed also indicates basically normal arterial flows down to the lower legs for we then encountered extreme calcifications but not really any specific occlusions that we can anticipate improving either with surgery or interventional processes. While the CTA may be somewhat misleading due to the amount of calcification in the smaller vessels I am not convinced that a formal arteriogram and attempting to revascularize the left lower extremity will be successful. I agree with Dr. Dover's plan for further debridement and possible hyperbaric oxygen therapy. If he continues to have progressive gangrene of the left foot despite these attempts then certainly an arteriogram and attempted revascularization would be reasonable although I have generally seen disappointing results. Home Medications Medication Instructions Recorded Confirmed Type Carvedilol [Coreg] 3.125 mg PO DAILY 06/10/16 02/25/17 History Chlorthalidone [Hygroton] 25 mg PO DAILY 06/10/16 02/25/17 History Ferrous Sulfate [Ferrous Sulfate 325 mg PO DAILY 06/10/16 02/25/17 History Cap] Glyburide/Metformin HCl 2 each PO BID 06/10/16 02/25/17 History [Glyburide-Metformin 5-500 mg] Lisinopril [Prinivil] 5 mg PO DAILY 06/10/16 02/25/17 History Simvastatin [Zocor] 20 mg PO BEDTIME 06/10/16 02/25/17 History Allergies Allergy/AdvReac Type Severity Reaction Status Date / Time No Known Allergies Allergy Verified 06/10/16 10:09 Medical,Surgical,& Family Hx - Medical History Cardio: History of: Hypertension Psychological: No history of: Anxiety Disorders Endocrine: History of: Diabetes Mellitus (NIDDM), Dyslipidemia Renal: No history of: Dialysis Genitourinary: No history of: Bladder Problem, Kidney Stones, Prostate Problems Hematology: History of: Anemia No history of: Blood Transfusion Reaction Other: No history of: Anesthesia Reactions, Cancer - Surgical History Cardiac Surgeries: Patient Denies: Cardiac Catheterization HEENT Surgeries: Patient denies: Tonsilectomy & Adenoidectomy Abdominal Surgeries: Surgical HX of: EGD Patient denies: Appendectomy, Cholecystectomy, Colonoscopy Orthopedic Surgeries: Patient denies;: Orthopedic Surgery - Family History Family History: Reports;: Family Diabetes (two brothers) - Social History Smoking Status: Never smoker (Patient admits to using smokeless tobacco frequently) Frequency of Alcohol Use: None Type of Drug Use: None Exam - Constitutional Vitals: Period Temp Pulse Resp BP Sys/Chand Pulse Ox Last 24 Hr 98.1 F-98.4 F 62-82 15-18 111-140/62-73 97-100 Quality Measures - VTE Contraindication to Pharmacological VTE Prophylaxis: High Risk of Bleeding Results - Labs CBC & BMP: 03/01/17 05:13 03/01/17 05:13
[2017-03-02] MEDS ORDERED: BUPIVACAINE 0.25% 50 ML VIAL ONE (13:08)
[2017-03-02] MEDS ORDERED: PROPOFOL 200 MG/20 ML VIAL IV ONE (14:02)
[2017-03-02] MEDS ORDERED: LIDOCAINE 2% 5 ML VIAL ONE (14:02)
[2017-03-02] MEDS ORDERED: PHENYLEPHRINE 1 MG/10 ML SYRINGE IV ONE (14:02)
[2017-03-02] MEDS ORDERED: ONDANSETRON 4 MG/2 ML VIAL ONE (14:02)
--- NOTE | 2017-03-02 15:07 | Operative Note ---
Date of procedure: 03/02/17 Pre-op diagnosis: Failing flaps left foot with progressive ischemic changes lateral foot and Post-op diagnosis: same Procedure: Operative note: Preoperative diagnosis: Failed flaps of with progressive ischemic changes of the left fifth toe from the wound of the left foot Postoperative diagnosis: Same Procedure: Amputation of left fifth toe and metatarsal head with extensive debridement of skin subcutaneous tissue tendon fascia and muscle of the wound of the left foot Surgeon Dr. 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 Postoperatively he has been on some IV antibiotics as well as local wound care we had failure of the flaps of the posterior flap region of the foot as well as the lateral flap areas with progressive ischemic changes there and then progressive ischemic changes of the left fifth toe. We needed to bring them back this time debride this down clean it up and take that other toe keeping the first toe at this time. Procedure: With patient prepped and draped in a sterile fashion timeout and antibiotics completed approaches area of the left foot. At this point I begin to debride some the deep tissue around the base of the other metatarsal bones just to clean that area up at this time after we infiltrated with a local anesthetic and did a digital block. Pre-debridement wound size is 9 x 5 x 2.5 cm. At that point I went ahead and begin to excise a skin at the base on the posterior flap area with the knife to clean this base to get it beyond the necrotic tissue that was at the skin edge as well as a fatty tissue in that area. Once that was completed then carried this all around the base of the fifth toe and begin to excise the skin proximal to the fifth toe that was necrotic all the way up to the end of the previous incision. At that point I was able to disarticulate the toe itself and remove it intact. Once that was done then I went ahead and used a periosteal elevator to elevate the periosteum of the fifth metatarsal head we took an oscillating saw and went through that in divided that completely and smoothly at this time. This allowed access to the base of this wound to begin debride some tendon some necrotic fatty tissue and some necrotic muscle from the base of this wound get this loose tenderness and necrotic fascial tissue removed. I then begin to debride the necrotic tendinous and fascial tissue over the top of the metatarsals as well as the necrotic edge of the medial part of the wound with a skin flap that failed here using this is clean as I could. I will try to be extremely careful not to compromise the circulation to the first toe since that seems to be viable at this time. We debrided between the metatarsals get as much necrotic tissue between that his tissues cleaned up debriding some tendon and muscle in this area with the scissors and knife. Once I debrided as much tissues I could look pretty good with some blood present in the wound bed we then washed irrigated with saline solution. At this point there was a little ulcer on the posterior aspect of the left first toe that I took a knife tube and just cored out the necrotic looking tissue from finding it not going very deep and yet staying fairly clean. After little additional debridement and a looking fairly clean we now have a post debridement wound that is 11.1 x 8.3 x 2.9 cm in size. At that point we put moisturizing material into the wound bed and covered it with Adaptic and wrapped it with a bulky dressing. Patient was taken recovery room. Estimated blood loss 5-10 cc Sponge count correct 2 Drains none Complications none Condition stable satisfactory Anesthesia: GETA, local (0.25% Marcaine plain mixed [id number] 1% Xylocaine plain) Surgeon / Physician: Jesse Dover Social Worker: Cielo Prado Estimated blood loss: other (5 cc) Specimens: other (Amputated toe bone for pathology and tissue for culture) Condition: stable Disposition: floor Results - Labs CBC & BMP: 03/01/17 05:13 03/01/17 05:13 Discharge Plan - Discharge Medications No Action Simvastatin [Zocor] 20 mg PO BEDTIME Lisinopril [Prinivil] 5 mg PO DAILY Glyburide/Metformin HCl [Glyburide-Metformin 5-500 mg] 2 each PO BID Ferrous Sulfate [Ferrous Sulfate Cap] 325 mg PO DAILY Chlorthalidone [Hygroton] 25 mg PO DAILY Carvedilol [Coreg] 3.125 mg PO DAILY - Follow Up or Referral - Forms/Instructions
[2017-03-02] MEDS: SODIUM HYPOCHLORITE 0.25% IRRIG 473 ML BOTTLE TOP SCH (16:08)
[2017-03-02] MEDS ORDERED: MIDAZOLAM 2 MG/2 ML VIAL ONE (16:09)
[2017-03-02] MEDS ORDERED: fentaNYL 100 MCG/2 ML VIAL ONE (16:09)
[2017-03-02] MEDS ORDERED: SEVOFLURANE 1 UNIT/15 MINUTE INH ONE (16:09)
[2017-03-02] MEDS ORDERED: ePHEDrine 50 MG/ML AMP ONE (16:10)
[2017-03-02] MEDS: SODIUM CHLORIDE 0.9% 1,000 ML IV SCH (16:58)
[2017-03-02] MEDS: VANCOMYCIN INJ 1,000 MG in SODIUM CHLORIDE 0.9% 250 ML IV SCH (16:59)
--- NOTE | 2017-03-02 17:45 | Anesthesia Post-Op ---
Anesthesia Post OP - Post Ansesthetic Evaluation Patient seen in post op: Yes Resp: within normal limits CV: within normal limits Mental: within normal limits Temp: within normal limits [id number]: within normal limits Nausea and Vomiting: within normal limits Pain: within normal limits
[2017-03-02] MEDS: CIPROFLOXACIN 500 MG TABLET PO SCH (21:31)
[2017-03-02] MEDS: ENOXAPARIN 40 MG/0.4 ML SYRINGE SUBCUT SCH (21:31)
[2017-03-02] MEDS: SIMVASTATIN 20 MG TABLET PO SCH (21:31)
[2017-03-02] MEDS: ceFAZolin 2,000 MG in PREMIX 1 EACH IV SCH (22:41)
[2017-03-03] MEDS: PIPERACILLIN/TAZOBACTAM 3,375 MG in SODIUM CHLORIDE 0.9% 100 ML IV SCH ×3 (05:07→20:57)
[2017-03-03] MEDS: ceFAZolin 2,000 MG in PREMIX 1 EACH IV SCH (05:11)
[2017-03-03] MEDS: SODIUM CHLORIDE 0.9% 1,000 ML IV SCH ×3 (05:16→15:46)
[2017-03-03 06:03] LABS: Basophils % 0.1 % (0.0-0.8); Eosinophils # 0.1 10*3/uL (0.0-0.87); Eosinophils % 0.8 % (0.00-10.9); Hematocrit 24.6 VOL% (42.0-52.0); Hemoglobin 8.2 GM/DL (14.0-18.0); Immature Granulocytes % 0.9 %; Lymphocytes # 1.5 10*3/uL (1.4-4.0); Lymphocytes % 13.8 % (21.2-54.2); Mean Corpuscular HGB Conc 33.3 GM/DL (32-36); Mean Corpuscular Hemoglobin 30 PG (27-34); Mean Corpuscular Volume 90.4 FL (87-102); Mean Platelet Volume 9.2 FL (9.6-12.0); Monocytes # 0.7 10*3/uL (0.11-0.8); Monocytes % 6.5 % (1.7-12.7); Neutrophils # 8.5 10*3/uL (1.4-7.4); Neutrophils % 77.9 % (38.7-73.9); Platelet Count 361 T/CUMM (130-400); Red Blood Count 2.72 MC/CUMM (3.8-5.5); Red Cell Distribution Width 12.7 % (9.3-17.3); White Blood Count 10.9 T/CUMM (4-12)
[2017-03-03 06:25] LABS: Microcytosis 1+; Ovalocytes Slight; Platelet Estimate Normal
[2017-03-03 06:41] LABS: Albumin 2.4 G/DL (3.4-5.0); Bilirubin,Total 0.4 MG/DL (0.2-1.0); Calcium 8.4 MG/DL (8.5-10.1); Osmolality,Calculated 281.4 MOS/KG (273-304); Potassium 4.4 MMOL/L (3.5-5.1); Total Protein 5.9 G/DL (6.4-8.3)
--- NOTE | 2017-03-03 08:28 | General Surgery Progress Note ---
Assessment and Plan - Time spent with patient Time spent with patient: Less than 30 minutes (Hematocrit is stable postop at 24.6.) (1) Gangrene of toe of left foot Status: Acute Assessment and plan: 02/25/2017. Ischemic gangrene left third toe with abscess and skin loss of the dorsal left foot. This is likely related to diabetic foot infection, with unknown degree of underlying peripheral vascular disease. His glucoses and WBC are elevated at this point as well, and he needs surgical excision of the toe and drainage of the infection. We will plan to take him to surgery this morning. He understands that we are to amputate the left third toe, and it is questionable whether we can save this left second and fourth toes. He also understands that we will be left with a large defect dorsal scan on the left foot, and this will require an extensive period of time of healing before we can hope to graft or close the area but in effort to salvage the forefoot this will be our initial plan. He understands and is in agreement with conservative treatment at this point in favor of this plan over transmetatarsal amputation. 02/26/2017. Patient is stable postop I&D excisional debridement of left foot and amputation of second through fourth toes. Will initiate wound care today, keeping the areas moist while we await final cultures. Metabolically looks good and will follow his labs. When final cultures are available we will work on a disposition for wound care while we increased granulation in hopes of ultimately grafting this wound. Will be optimistically cautious as we await the status of the fifth toe, but he understands that we may ultimately lose the fifth toe as well 02/27/2017. Progressing well post amputation of left second third and fourth toes for ischemic gangrene. His hematocrit is stable at 25; we will watch this a little bit longer before transfusing. His arterial Doppler waveform does seem to indicate an abnormal inflow pattern. His creatinine is 1.2 so will plan to get a CTA today to assess his arterial status. Final cultures are still pending; he is growing gram-negative rods on preliminary cultures, and is currently receiving Zosyn IV. We will continue this and his local care until final cultures are available. 02/28/2017. Progressive ischemic changes of the left foot with gangrenous tissue now noted for left fifth toe. This does need to be debrided and likely will lose the fifth toe. I discussed this with the patient, as well as the possibility that he may need further studies to determine this circulation status lower extremities. I believe we would benefit from going ahead and obtaining an opinion from Dr. Carcamo, and consulted him for Thursday. We may also be able to take him to surgery on Thursday and go ahead and debride this area but will have Dr. Dover look in and reevaluate on Thursday. Will repeat labs on Thursday and hold him n.p.o. in case we can do the surgery on Thursday. 03/03/2017. Stable postop amputation of left fifth toe with additional debridement of the left foot. Will initiate wound care again today. We are looking at discharge options once his final. Cultures are available. Considering the idea of wound VAC with twice weekly dressing changes at [facility]. Current Visit: Yes (2) Diabetic infection of left foot Status: Acute Current Visit: Yes Subjective Patient reports: Present: no new complaints, tolerating a regular diet Exam - Constitutional Vitals: Period Temp Pulse Resp BP Sys/Chand Pulse Ox Last 24 Hr 97.5 F-98.6 F 62-88 14-20 90-142/52-78 94-100 General appearance: no acute distress - Respiratory Respiratory exam: Present: clear to auscultation bilaterally - Extremities Exam Extremities exam: Present: other (Postop dressing is dry.) Results - Labs CBC & BMP: 03/03/17 04:54 03/03/17 04:54 Lab Results: I have reviewed the past 24 hour labs Quality Measures - VTE Contraindication to Pharmacological VTE Prophylaxis: High Risk of Bleeding
[2017-03-03] MEDS: VANCOMYCIN INJ 1,000 MG in SODIUM CHLORIDE 0.9% 250 ML IV SCH ×2 (08:45→17:02)
[2017-03-03] MEDS: INSULIN REGULAR 100 UNIT/ML SUBCUT SCH ×4 (08:46→20:55)
[2017-03-03] MEDS: CHLORTHALIDONE 25 MG TABLET PO SCH (08:46)
[2017-03-03] MEDS: FERROUS SULFATE 325 MG TABLET PO SCH (08:46)
[2017-03-03] MEDS: CIPROFLOXACIN 500 MG TABLET PO SCH ×2 (08:47→20:56)
[2017-03-03] MEDS: CARVEDILOL 3.125 MG TABLET PO SCH (08:47)
[2017-03-03] MEDS: LISINOPRIL 5 MG TABLET PO SCH (08:47)
[2017-03-03] MEDS: PANTOPRAZOLE 40 MG TABLET PO SCH (08:47)
[2017-03-03] MEDS: SODIUM HYPOCHLORITE 0.25% IRRIG 473 ML BOTTLE TOP SCH (10:46)
[2017-03-03] MEDS: BACITRACIN OINT 0.9 GM PACK TOP SCH (10:54)
[2017-03-03] MEDS: SIMVASTATIN 20 MG TABLET PO SCH (20:56)
[2017-03-03] MEDS: ENOXAPARIN 40 MG/0.4 ML SYRINGE SUBCUT SCH (20:58)
[2017-03-04] MEDS: VANCOMYCIN INJ 1,000 MG in SODIUM CHLORIDE 0.9% 250 ML IV SCH ×3 (01:42→16:42)
[2017-03-04] MEDS: PIPERACILLIN/TAZOBACTAM 3,375 MG in SODIUM CHLORIDE 0.9% 100 ML IV SCH ×3 (05:16→21:45)
[2017-03-04] MEDS: SODIUM CHLORIDE 0.9% 1,000 ML IV SCH ×2 (06:23→17:01)
[2017-03-04] MEDS: BACITRACIN OINT 0.9 GM PACK TOP SCH (08:33)
[2017-03-04] MEDS: CHLORTHALIDONE 25 MG TABLET PO SCH (08:33)
[2017-03-04] MEDS: INSULIN REGULAR 100 UNIT/ML SUBCUT SCH ×4 (08:33→21:44)
[2017-03-04] MEDS: FERROUS SULFATE 325 MG TABLET PO SCH (08:33)
[2017-03-04] MEDS: CIPROFLOXACIN 500 MG TABLET PO SCH ×2 (08:34→21:44)
[2017-03-04] MEDS: CARVEDILOL 3.125 MG TABLET PO SCH (08:34)
[2017-03-04] MEDS: PANTOPRAZOLE 40 MG TABLET PO SCH (08:35)
[2017-03-04] MEDS: LISINOPRIL 5 MG TABLET PO SCH (08:35)
[2017-03-04] MEDS: SODIUM HYPOCHLORITE 0.25% IRRIG 473 ML BOTTLE TOP SCH (08:43)
--- NOTE | 2017-03-04 13:21 | Pathology Report from [facility] ---
[facility] [place] # : [id number] PATIENT NAME : Pepe Alvarez ORDERING DR : MICHELLE CEJA MD CLINICAL HX: I&D left foot wound amputation left 5th toe POST-OP DX: Gangrene left foot SPECIMEN INFO: Left 5th toe GROSS DESCRIPTION: The specimen is received in formalin labeled with the patients name and consists of a focally gangrenous toe measuring 4.8 x 1.8 x 1.5 cm with an attached fragment of skin measuring 5.3 x 1.7 cm. 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 DIAGNOSIS FOR PEPE ALVAREZ: LEFT 5th TOE, AMPUTATION: Gangrene. COLLECTED DATE: 03/02/2017 [facility] [place] DATE: 03/03/2017 ELECTRONICALLY SIGNED BY: William Todd M.D. 03/03/2017 - 9:51:36 MTDD
[2017-03-04] MEDS: SIMVASTATIN 20 MG TABLET PO SCH (21:44)
[2017-03-04] MEDS: ENOXAPARIN 40 MG/0.4 ML SYRINGE SUBCUT SCH (21:44)
[2017-03-05] MEDS: VANCOMYCIN INJ 1,000 MG in SODIUM CHLORIDE 0.9% 250 ML IV SCH ×2 (02:28→09:19)
[2017-03-05] MEDS: PIPERACILLIN/TAZOBACTAM 3,375 MG in SODIUM CHLORIDE 0.9% 100 ML IV SCH ×2 (05:25→12:26)
[2017-03-05] MEDS: SODIUM CHLORIDE 0.9% 1,000 ML IV SCH (06:00)
[2017-03-05] MEDS: INSULIN REGULAR 100 UNIT/ML SUBCUT SCH ×2 (07:56→12:24)
--- NOTE | 2017-03-05 09:01 | Discharge Summary ---
Hospital Course - Hospital Course Hospital Course: Discharge summary 03/05/2017. Diagnosis 1 ischemic gangrene of the distal left foot 2 type 2 diabetes with peripheral vascular disease and angiopathy. 3 hypertension 4 anemia of chronic disease. 5 nicotine abuse Brief summary-this 57-year-old male presented to the emergency room after approximately 2 days of worsening pain in "darkening and bleeding" of the left foot. He had reportedly had 1 month of problems with pain and progressive skin changes on the distal toes of the left foot. He did not seek attention, because he reportedly always got better. When the area failed to improve and began bleeding, he did seek medical attention first to [facility], and was transferred here in physical exam was noted to have a gangrenous left third toe. Upon arrival at the ED here on 02/25/2017, he was found to have WBC elevated at 15,000, glucose of 300, and obvious ischemic gangrene of the left third toe. X-rays were done which showed no obvious dislocation or osteomyelitis. Dr. Dover was consulted, and dorsal left foot was found to have vesicular changes in addition to ischemic changes of the distal foot, with questionable viability left second and fourth toes as well. IV fluids and antibiotics were begun. He was admitted, and on 02/25/2017 was taken to the OR, where debridement of the dorsal left foot and amputation of third toe performed, as well as the unsalvageable left second and fourth toes. Postoperatively his hematocrit did drop slightly to 24.3, but it was felt that he was asymptomatic so no transfusion was done. [facility] was consulted, but it was felt that he did not meet criteria at this time. His cultures initially showed 4 organisms including Staphylococcus and enterococcus. Both were sensitive to Zosyn, which we continued until final cultures were reported. Vascular workup was initiated, with noninvasive Doppler waveform showing abnormal wave flow pattern. A formal CTA was obtained, which showed no circumferential narrowing of the deep or superficial systems and three-vessel runoff below the knee, however he did have markedly reduced flow to the smaller vessels of the foot. This was evident, as we did ultimately lose vascularity to the left fifth toe and on 03/02/2017, it became obvious that this was ischemic as well and he was taken to the operating room where the left fifth toe was additionally amputated and further debridement of the left foot undertaken. This nonviable tissue was removed without difficulty. Postoperatively his hematocrit did remain stable and today is 25.4. His glucoses have remained in the 100-125 range, and his white count is now 10,000. Her final cultures show procidentia organism which is sensitive to both Zosyn and Cipro. The wound bed is moist and pink, and there is no evidence of any further ischemic change. The patient is feeling well, his vital signs and O2 sats were stable. His Accu-Cheks have been within reasonable range, and we have good p.o. coverage for his current organisms. There has been no for further ischemic or erythematous changes to suggest any further infection, so we will plan to discharge him to follow-up as outpatient wound care with [facility]. We have suggested that the best way to manage this area to keep it from drying out in any further tissue loss would be to use negative pressure wound therapy. I have discussed this with the wound department [facility], and will elect to discharge him home today with just a wet dressing placed and have him return tomorrow for placement of negative pressure wound management system at the [facility] tomorrow, with twice weekly changes at the [facility] until we see him. See specific wound care orders in the discharge portion of this document. We will keep him on Cipro 500 mg p.o. twice daily 10 days. Will resume all his prior home medications. We will plan to follow him up in our office in 2 weeks unless there are problems. - Time spent with patient Time with patient DS: Less than 30 minutes Diagnosis - Discharge Diagnosis (1) Gangrene of toe of left foot Status: Acute (2) Diabetic infection of left foot Status: Acute Specialty Discharge - Follow Up or Referrals Follow up with: Jesse Dover MD [Physician] - 2 Weeks (See Dr. Dover or Cielo) Discharge Plan - Discharge Data Disposition: Disch To Home/Self Care Condition at Discharge: Stable Discharge Diet: diabetic diet Activity: other (Limit walking. Use diabetic offloading shoe.) Weight Bearing at Discharge: partial weight bearing, other (See activity above) Contact your physician if you experience:: fever over 101, Redness or swelling, Bleeding, pain uncontrolled by pain medications Wound / Dressing Care Instructions: New wound care instructions; please send a copy with the patient and also have case management fax to [facility]. Call [phone] to discuss with Yvonne Pedersen RN, for further information and to get a fax number. 1. Beginning 03/06/2017, remove all outer dressings. 2. Wash foot and leg with Hibiclens and saline mixture. 3. Irrigate wound with 20 cc of half strength Dakin's solution. 4. Apply liberal amounts of hydrogel to the wound bed. 5. Skin prep or benzoin to all periwound skin. 6. White foam to cover all bone and tendon areas. 7. Black foam over the white foam. 8. Negative pressure drape to seal the dressing. 9. Applied negative pressure to wound dressing at -75mm Hg/continuous. 10. Aquaphor to remainder of foot and leg. 11. Heel pad to heel. 12. Triple antibiotic ointment to left great toe ulcer and cover with Band-Aid. 13. Aquaphor to remainder of right entire foot and leg. 14. Wrapped the entire right foot and leg to the popliteal area with overlapping layers of cast padding and secured with Coban. 15. Change twice weekly - Discharge Medications New Chlorhexidine 4% Soln [Hibiclens] 1 applic TOP DIRECTED #118 ml Skin Healing Oint (Aquaphor) [Aquaphor] 1 applic TOP PRN PRN #1 applic PRN Reason: Dry Skin Sodium Hypochlorite 0.25% Irr [Dakins 1/2 Strength 0.25% Soln] 1 applic TOP DIRECTED #473 ml Ciprofloxacin Tab [Cipro Tab] 500 mg PO Q12HR #20 tablet Continue Simvastatin [Zocor] 20 mg PO BEDTIME Lisinopril [Prinivil] 5 mg PO DAILY Glyburide/Metformin HCl [Glyburide-Metformin 5-500 mg] 2 each PO BID Ferrous Sulfate [Ferrous Sulfate Cap] 325 mg PO DAILY Chlorthalidone [Hygroton] 25 mg PO DAILY Carvedilol [Coreg] 3.125 mg PO DAILY - Follow Up or Referral - Forms/Instructions Exam - Constitutional Vitals: Period Temp Pulse Resp BP Sys/Chand Pulse Ox Last 24 Hr 97.4 F-97.9 F 65-77 18-20 120-131/62-72 97-100 General appearance: normal weight, no acute distress - Head Head exam: Present: normocephalic - Eye Eye exam: Present: EOMI - Neck Neck exam: Absent: lymphadenopathy, tenderness, thyromegaly - Respiratory Respiratory exam: Present: clear to auscultation bilaterally - Cardiovascular Cardiovascular exam: Present: regular rate and rhythm - GI/Abdominal GI/Abdominal exam: Present: hypoactive bowel sounds. Absent: distended, tenderness - Extremities Exam Extremities exam: Present: other (Left lower extremity forefoot wound is clean, with moist wound bed. There is no further ischemic change, no erythematous change. There is no swelling. The left great toe has a very small, 0.5 mm ulceration the medial aspect. Other than that there are no wounds except for the large defect on the dorsal aspect foot with exposed bone and tendon. In addition, there is fatty subcutaneous tissue, that must be kept moist, and the best way to do this will be to use negative pressure over a white dense foam dressing and hydrogel.) - Neurological Exam Neurological exam: Present: alert, oriented X3, reflexes normal, other ( Decreased sensory response with L OPS (loss of protective sensation) of the feet in all cardinal areas tested. This is consistent with diabetic peripheral neuropathy.) - Psychiatric Psychiatric exam: Present: normal affect, normal mood. Absent: depressed Discharge Results Labs on day of discharge: Labs from last 24 hours 03/05/17 03/04/17 03/04/17 07:09 21:09 15:29 POC Glucose 129 H 237 H 210 H Vancomycin Trough 03/04/17 03/04/17 10:58 08:33 POC Glucose 295 H Vancomycin Trough 17.6 DS: Provider Date of admission: 02/25/17 01:46 Primary care physician: Reji De Los Santos MD Attending physician on admission: Jesse Dover MD Consults: 02/25/17 11:14 Consult to Wound Care - [place] [CONS] Routine Reason for Wound Care: Wound Care Management Consult Comment: Left foot wound 02/28/17 10:00 Consult to Physician [CONS] Routine Comment: Consulting Provider: Mason Santiago Consulting Provider Notified: Yes When should Consulting Provider be notified: Now Person Notified: aparna rubio Date Notified: 03/02/17 Time Notified: 09:02 Consult Notification Comment: Pt with DM & PAD, s/p left foot abscess, ischemic toes with abnormal CTA; please eval/tx 03/02/17 08:50 Consult to Anesthesiology [CONS] Routine Consulting Provider: Reason for Anesthesiology: Pre-op Clearance 03/02/17 15:10 Consult to Case Mgmt/Social Srvs [CONS] Routine Reason for Case Mgmt/Social Srvs: Discharge Planning Home Health Other Consult Comment: Patient will need good wound care daily 03/02/17 15:17 Consult to Pharmacy [CONS] Routine Reason for Pharmacy Consult: Dose/Manage Vancomycin Discharging clinician: Cielo Prado CNP, R
[2017-03-05] MEDS: FERROUS SULFATE 325 MG TABLET PO SCH (09:20)
[2017-03-05] MEDS: CIPROFLOXACIN 500 MG TABLET PO SCH (09:21)
[2017-03-05] MEDS: CARVEDILOL 3.125 MG TABLET PO SCH (09:21)
[2017-03-05] MEDS: LISINOPRIL 5 MG TABLET PO SCH (09:21)
[2017-03-05] MEDS: CHLORTHALIDONE 25 MG TABLET PO SCH (09:21)
[2017-03-05] MEDS: PANTOPRAZOLE 40 MG TABLET PO SCH (09:21)
[2017-03-05] MEDS: SODIUM HYPOCHLORITE 0.25% IRRIG 473 ML BOTTLE TOP SCH (09:23)
[2017-03-05] MEDS: BACITRACIN OINT 0.9 GM PACK TOP SCH (09:23)
[2017-03-05 11:38] VITALS: BP 137/65
== END 2017-03-05 16:00 | disposition home or self-care (01) | DRG 240 ==
LOC: N.ED 01:26 → N.EDINP 01:46 → N.3E 02:45
PROVIDERS: ADMIT Specialist; ATTEND Specialist